=== PATIENT | female | born 1970 | race Caucasian/White ===

== ENCOUNTER 2016-08-09 15:43 | Emergency (ER) | payer BC, OTHER ==
[2016-08-09] MEDS ORDERED: KETOROLAC 30 MG/ML 1 ML VIAL IVP STA (16:03)
[2016-08-09] MEDS ORDERED: SODIUM CHLORIDE 0.9% 1,000 ML IV STA ×2 (16:03)
--- NOTE | 2016-08-09 16:05 | ED ---
General Adult HPI - General Chief complaint: Abdominal Pain Stated complaint: back & groin pain Time Seen by Provider: 08/09/16 15:56 Source: patient, RN notes reviewed Mode of arrival: ambulatory Limitations: no limitations - History of Present Illness Initial comments: Patient for 6-year-old female significant past medical history for chronic low back pain, who presents emergency room today with a chief complaint of right- sided flank pain. She does admit that it wraps around to the right side of the lower abdomen. States she went to the family doctor earlier in the week had a urinalysis performed. She states she started on steroids for her back pain. She states she's had no relief the symptoms. She does admit that it's worse with certain movements at times. She states she feels like the pain is deeper inside. Patient denies any other complaints or associated symptoms. Patient denies any recent fever, chills, shortness of breath, chest pain, nausea or vomiting, numbness or tingling, dysuria or hematuria, constipation or diarrhea, headaches or visual changes, or any other complaints. - Related Data Home Medications Medication Instructions Recorded Confirmed Diazepam [Valium] 5 mg PO BID 03/03/16 08/09/16 Cyclobenzaprine [Flexeril] 10 mg PO BID PRN 08/09/16 08/09/16 Ibuprofen [Motrin] 800 mg PO Q8H PRN 08/09/16 08/09/16 Methylphenidate HCl [Ritalin LA] 30 mg PO DAILY 08/09/16 08/09/16 Naproxen Sodium [Aleve] 440 mg PO BID PRN 08/09/16 08/09/16 Venlafaxine HCl [Effexor XR] 75 mg PO DAILY 08/09/16 08/09/16 oxyCODONE HCL [Oxyir] 5 mg PO TID 08/09/16 08/09/16 predniSONE See Taper PO DAILY 08/09/16 08/09/16 Allergies Allergy/AdvReac Type Severity Reaction Status Date / Time bupropion HCl [From Zyban] Allergy Rash/Hives Verified 08/09/16 16:23 Review of Systems ROS Statement: Those systems with pertinent positive or pertinent negative responses have been documented in the HPI. ROS Other: All systems not noted in ROS Statement are negative. Past Medical History Additional Past Medical History / Comment(s): chronic back pain History of Any Multi-Drug Resistant Organisms: None Reported Past Surgical History: Section, Hysterectomy, Orthopedic Surgery Past Psychological History: Depression Smoking Status: Current every day smoker Past Alcohol Use History: None Reported Past Drug Use History: None Reported General Exam - General Exam Comments Initial Comments: General: The patient is awake and alert, in no distress, and does not appear acutely ill. Eye: Pupils are equal, round and reactive to light, extra-ocular movements are intact. No nystagmus. There is normal conjunctiva bilaterally. No signs of icterus. Ears, nose, mouth and throat: There are moist mucous membranes and no oral lesions. Neck: The neck is supple, there is no tenderness or JVD. Cardiovascular: There is a regular rate and rhythm. No murmur, rub or gallop is appreciated. Respiratory: Lungs are clear to auscultation, respirations are non-labored, breath sounds are equal. No wheezes, stridor, rales, or rhonchi. Gastrointestinal: Soft, non-distended, non-tender abdomen without masses or organomegaly noted. There is no rebound or guarding present. No CVA tenderness. Bowel sounds are unremarkable. Musculoskeletal: Normal ROM, no tenderness. Strength 5/5. Sensation intact. Pulses equal bilaterally 2+. Neurological: A&O x 3. CN II-XII intact, There are no obvious motor or sensory deficits. Coordination appears grossly intact. Speech is normal. Skin: Skin is warm and dry and no rashes or lesions are noted. Psychiatric: Cooperative, appropriate mood & affect, normal judgment. Limitations: no limitations Course Vital Signs 08/09/16 15:48 Temperature 98.5 F Pulse Rate 118 H Respiratory 20 Rate Blood Pressure 119/84 O2 Sat by Pulse 99 Oximetry Medical Decision Making - Medical Decision Making Patient's CAT scan reviewed shows no acute ever maladies. Does show a stone of the left kidney. Results were discussed with patient. Remaining labs are unremarkable. Was discussed about possible past kidney stone that she did have blood in her urine earlier in the week. Was discussed about possible skeletal pain coming from her back. Advised follow-up the family doctor for further evaluation. Patient states understanding and is in agreement. - Lab Data Result diagrams: 08/09/16 16:17 08/09/16 16:17 Lab Results 08/09/16 08/09/16 08/09/16 Range/Units 16:17 16:17 16:17 WBC 9.0 (3.8-10.6) k/uL RBC 4.76 (3.80-5.40) m/uL Hgb 13.8 (11.4-16.0) gm/dL Hct 42.5 (34.0-46.0) % MCV 89.3 (80.0-100.0) fL MCH 29.0 (25.0-35.0) pg MCHC 32.5 (31.0-37.0) g/dL RDW 13.2 (11.5-15.5) % Plt Count 208 (150-450) k/uL Neutrophils % 81 % Lymphocytes % 15 % Monocytes % 2 % Eosinophils % 0 % Basophils % 0 % Neutrophils # 7.3 (1.3-7.7) k/uL Lymphocytes # 1.4 (1.0-4.8) k/uL Monocytes # 0.2 (0-1.0) k/uL Eosinophils # 0.0 (0-0.7) k/uL Basophils # 0.0 (0-0.2) k/uL Sodium 144 (137-145) mmol/L Potassium 3.7 (3.5-5.1) mmol/L Chloride 106 (98-107) mmol/L Carbon Dioxide 25 (22-30) mmol/L Anion Gap 13 mmol/L BUN 17 (7-17) mg/dL Creatinine 0.69 (0.52-1.04) mg/dL Est GFR (MDRD) Af Amer >60 (>60 ml/min/1.73 sqM) Est GFR (MDRD) Non-Af >60 (>60 ml/min/1.73 sqM) Glucose 133 H (74-99) mg/dL Calcium 10.0 (8.4-10.2) mg/dL Total Bilirubin 0.4 (0.2-1.3) mg/dL AST 22 (14-36) U/L ALT 39 (9-52) U/L Alkaline Phosphatase 75 (38-126) U/L Total Protein 8.1 (6.3-8.2) g/dL Albumin 4.9 (3.5-5.0) g/dL Amylase 59 (30-110) U/L Lipase 38 (23-300) U/L Urine Color Light Yellow Urine Appearance Clear (Clear) Urine pH 6.5 (5.0-8.0) Ur Specific [place] 1.004 (1.001-1.035) Urine Protein Negative (Negative) Urine Glucose (UA) Negative (Negative) Urine Ketones Negative (Negative) Urine Blood Negative (Negative) Urine Nitrate Negative (Negative) Urine Bilirubin Negative (Negative) Urine Urobilinogen <2.0 (<2.0) mg/dL Ur Leukocyte Esterase Negative (Negative) Disposition Clinical Impression: Back pain Disposition: HOME SELF-CARE Condition: Good Instructions: Acute Low Back Pain (ED) Additional Instructions: Please follow-up the family doctor over the next 2 days as discussed. Please return to emergency room if symptoms increase or worsen or for any other concerns. Time of Disposition: 18:04
[2016-08-09 16:29] LABS: Appearance,Urine Clear (Clear); Basophils % (A) 0 %; Bilirubin,Urine Negative (Negative); CH 30.3; Eosinophils % (A) 0 %; Glucose,Urine (UA) Negative (Negative); HCT 42.5 % (34.0-46.0); HDW 2.48; HGB 13.8 gm/dL (11.4-16.0); Ketones,Urine Negative (Negative); Leukocyte Esterase,Urine Negative (Negative); Luc # (Auto) 0.07; Luc % (Auto) 1; Lymphocytes # (A) 1.4 k/uL (1.0-4.8); Lymphocytes % (A) 15 %; MCHC 32.5 g/dL (31.0-37.0); MCV 89.3 fL (80.0-100.0); Mean Platelet Volume 8.2; Monocytes # (A) 0.2 k/uL (0-1.0); Monocytes % (A) 2 %; Neutrophils # (A) 7.3 k/uL (1.3-7.7); Neutrophils % (A) 81 %; Nitrite,Urine Negative (Negative); PH, Urine 6.5 (5.0-8.0); Protein,Urine Negative (Negative); RBC 4.76 m/uL (3.80-5.40); RDW 13.2 % (11.5-15.5); Specific Gravity,Urine 1.004 (1.001-1.035); UA Billing (MACRO vs. MICRO) CHEM; Urobilinogen,Urine <2.0 mg/dL (<2.0); WBC (Perox) 9.15
[2016-08-09 16:40] LABS: ALT 39 U/L (9-52); AST 22 U/L (14-36); Alkaline Phosphatase 75 U/L (38-126); Amylase 59 U/L (30-110); Anion Gap 13 mmol/L; Blood Urea Nitrogen 17 mg/dL (7-17); Carbon Dioxide 25 mmol/L (22-30); Chloride 106 mmol/L (98-107); Glucose 133 mg/dL (74-99); Non-African American GFR(MDRD) >60 (>60 ml/min/1.73 sqM); Potassium 3.7 mmol/L (3.5-5.1); Sodium 144 mmol/L (137-145); Total Bilirubin 0.4 mg/dL (0.2-1.3); Total Protein 8.1 g/dL (6.3-8.2)
--- NOTE | 2016-08-09 17:23 | XR ---
EXAMINATION TYPE: XR KUB DATE OF EXAM: 08/09/2016 4:28 PM CLINICAL HISTORY: Right-sided abdominal pain for 2 days. TECHNIQUE: 2 upright KUB images of the abdomen are obtained. COMPARISON: Abdominal x-ray series March 10, 2016. CT abdomen and pelvis March 03, 2016 FINDINGS: Scattered gas is seen in non-distended small bowel loops. Gas and fecal material is seen in non-distended colon. There is no visceromegaly, pneumoperitoneum, or abnormal calcification appr eciated. There are scattered pelvic phleboliths. Lung bases are clear. Osseous structures are intact. . IMPRESSION: Overall nonobstructive bowel gas pattern.
--- NOTE | 2016-08-09 17:46 | CT ---
EXAMINATION TYPE: CT abdomen pelvis wo con DATE OF EXAM: 08/09/2016 5:37 PM HISTORY: Patient complains of right flank pain. CT DLP: 214.8 mGycm. Automated Exposure Control for Dose Reduction was Utilized. TECHNIQUE: CT scan of the abdomen and pelvis is performed without oral or IV contrast. COMPARISON: NONE FINDINGS: Within the limitations of a non-contrast study, the following observations are made. LUNG BASES: No significant abnormality is appreciated. LIVER/GB: No significant abnormality is appreciated. PANCREAS: No significant abnormality is seen. SPLEEN: No significant abnormality is seen. ADRENALS: No significant abnormality is seen. KIDNEYS: There are 1-3 small calculi scattered throughout the left kidney, all measuring under 2 mm i n size. No right-sided renal calculi are evident. No hydronephrosis or obstructing renal calculi are clearly seen bilaterally. There are scattered pelvic phleboliths redemonstrated. No intraluminal calc ulus in the bladder is seen. BOWEL: Evaluation of bowel is suboptimal due to lack of enteric contrast. No suspicious small or larg e bowel dilatation is present. GENITAL ORGANS: Uterus is retroverted in shape but normal in size. LYMPH NODES: No greater than 1cm abdominal or pelvic lymph nodes are appreciated. OSSEOUS STRUCTURES: No significant abnormality is seen. OTHER: No significant additional abnormality is seen. IMPRESSION: Tiny nonobstructing left-sided renal calculi. No renal stones or hydronephrosis is clearl y seen bilaterally. No significant acute finding is clearly seen to account for patient's symptoms.
[2016-08-09 18:17] VITALS: BP 123/66; PULSE 83; RESP 18; TEMP 98.6
== END 2016-08-09 18:17 | disposition home or self-care (01) ==
LOC: EC 15:43
DX: M54.5 Low back pain (principal); G89.29 Other chronic pain; N20.0 Calculus of kidney; R10.31 Right lower quadrant pain; F32.9 Major depressive disorder, single episode, unspecified; F17.200 Nicotine dependence, unspecified, uncomplicated; Z79.1 Long term (current) use of non-steroidal anti-inflammatories (NSAID); Z79.891 Long term (current) use of opiate analgesic; Z79.52 Long term (current) use of systemic steroids; Z79.899 Other long term (current) drug therapy; Z88.8 Allergy status to other drugs, medicaments and biological substances; Z90.710 Acquired absence of both cervix and uterus
CPT/HCPCS: 99284 ×2; 96374 ×2; 96361 ×3; 36415; 80053; 82150; 83690; 85025; 81003; 74000; 74176; J1885

== ENCOUNTER 2017-06-23 01:18 | Emergency (ER) | payer BC ==
[2017-06-23] MEDS ORDERED: HYDROcodone/APAP 5-325MG 1 EACH TAB PO STA (01:52)
--- NOTE | 2017-06-23 02:19 | XR ---
EXAMINATION TYPE: XR Hip LT and AP Pelvis DATE OF EXAM: 06/23/2017 COMPARISON: NONE HISTORY: Hip pain after a fall TECHNIQUE: A single AP view of the pelvis is obtained. Two views of the left hip are obtained. FINDINGS: Pelvic ring is intact. Proximal femurs and hip joints are intact. There is no sign of hip dysplasia. Left hip joint appears anatomic. Sacroiliac joints appear normal. CONCLUSION: Normal pelvis and left hip exam.
--- NOTE | 2017-06-23 02:20 | XR ---
EXAMINATION TYPE: XR lumbosacral spine min 4V DATE OF EXAM: 06/23/2017 COMPARISON: NONE HISTORY: Back pain TECHNIQUE: 5 views FINDINGS: I see no fracture nor dislocation. The spaces are fairly normal. Vertebra have normal align ment. Posterior elements are intact. Sacroiliac joints appear normal. IMPRESSION: Negative lumbar spine exam.
--- NOTE | 2017-06-23 02:37 | ED ---
Fall HPI - General Chief Complaint: Fall Stated Complaint: Fall-Back Pain Time Seen by Provider: 06/23/17 01:32 Source: patient Mode of arrival: ambulatory - History of Present Illness Initial Comments: 46-year-old female patient presents to the emergency department today for evaluation of left lower back pain and left hip pain after experiencing a fall at home. Patient states that she was standing on a shelf with her friend holding one of her feet trying to fix something on the ceiling when her friend fell down. Patient states that she also fell landing face down on the floor. Injury occurred at 0030 this morning. She denies hitting her head or losing consciousness. She states that since the fall she has been having left lower back pain that radiates into her hip and down the front of her thigh. She states that she has had problems with her low back in the past including degenerative disc disease, spinal stenosis, and bulging disks. He states that she does take oxycodone at home for this. She denies any numbness or tingling to her lower extremities. She denies any loss of bladder or bladder function. She denies any saddle anesthesia. She has been able to ambulate without difficulty. Patient denies any headache, neck pain, back pain, chest pain, shortness of breath, dizziness, weakness, abdominal pain, nausea, vomiting, or difficulties with bowel movements or urination. GCS is 15. She denies any use of anticoagulant medications. - Related Data Home Medications Medication Instructions Recorded Confirmed Diazepam [Valium] 5 mg PO BID 03/03/16 08/09/16 Cyclobenzaprine [Flexeril] 10 mg PO BID PRN 08/09/16 08/09/16 Ibuprofen [Motrin] 800 mg PO Q8H PRN 08/09/16 08/09/16 Methylphenidate HCl [Ritalin LA] 30 mg PO DAILY 08/09/16 08/09/16 Naproxen Sodium [Aleve] 440 mg PO BID PRN 08/09/16 08/09/16 Venlafaxine HCl [Effexor XR] 75 mg PO DAILY 08/09/16 08/09/16 oxyCODONE HCL [Oxyir] 5 mg PO TID 08/09/16 08/09/16 predniSONE See Taper PO DAILY 08/09/16 08/09/16 Allergies Allergy/AdvReac Type Severity Reaction Status Date / Time bupropion HCl [From Zyban] Allergy Rash/Hives Verified 06/23/17 01:25 Review of Systems ROS Statement: Those systems with pertinent positive or pertinent negative responses have been documented in the HPI. ROS Other: All systems not noted in ROS Statement are negative. Past Medical History Additional Past Medical History / Comment(s): chronic back pain History of Any Multi-Drug Resistant Organisms: None Reported Past Surgical History: Section, Hysterectomy, Orthopedic Surgery Past Psychological History: Depression Smoking Status: Current every day smoker Past Alcohol Use History: None Reported Past Drug Use History: None Reported General Exam Limitations: no limitations General appearance: alert, in no apparent distress, other (This is a well- developed, well-nourished adult female patient in no acute distress. Vital signs upon presentation were temperature 97.6F, pulse 121, respirations 20, blood pressure 117/70, pulse ox 99% on room air.) Head exam: Present: atraumatic, normocephalic, normal inspection Eye exam: Present: normal appearance, PERRL, EOMI. Absent: scleral icterus, conjunctival injection, periorbital swelling Neck exam: Present: normal inspection, full ROM, other (Nontender, no step-off, no deformity to firm midline palpation of the posterior cervical spine. Full range of motion without pain or limitation.). Absent: tenderness, meningismus, lymphadenopathy Respiratory exam: Present: normal lung sounds bilaterally. Absent: respiratory distress, wheezes, rales, rhonchi, stridor Cardiovascular Exam: Present: regular rate, normal rhythm, normal heart sounds. Absent: systolic murmur, diastolic murmur, rubs, gallop, clicks GI/Abdominal exam: Present: soft, normal bowel sounds. Absent: distended, tenderness, guarding, rebound, rigid Extremities exam: Present: normal inspection, full ROM, normal capillary refill , other (Patient has full range of motion of the left hip, no hip tenderness. Skin to the leg is pink, warm, and dry. Cap refill is less than 3 seconds. Pedal and posttibial pulses are 2+ and equal bilaterally.). Absent: tenderness , pedal edema, joint swelling, calf tenderness Back exam: Present: normal inspection, other (Nontender, no step-off, no deformity to firm midline palpation of the thoracic and lumbar vertebrae. Full range of motion without pain or limitation.). Absent: tenderness, vertebral tenderness Neurological exam: Present: alert, oriented X3, CN II-XII intact Psychiatric exam: Present: normal affect, normal mood Skin exam: Present: warm, dry, intact, normal color. Absent: rash Course Vital Signs 06/23/17 06/23/17 01:21 02:53 Temperature 97.6 F 97.8 F Pulse Rate 121 H 78 Respiratory 20 16 Rate Blood Pressure 117/70 111/69 O2 Sat by Pulse 99 98 Oximetry Medical Decision Making - Medical Decision Making 46 year-old female patient presented for evaluation of left lower back pain and left hip pain after experiencing a fall at home. Physical examination was unremarkable. We did do x-rays of the lower lumbar and the left hip and pelvis which were negative for any acute fracture or dislocation. Patient will be discharged home at this time to continue taking her home pain medications. She is instructed to follow-up with her primary care physician for recheck in 1-2 days. She is instructed to return here immediately for any new, worsening, or concerning symptoms. She verbalizes understanding and agrees with this plan. - Radiology Data Radiology results: report reviewed, image reviewed 5 views of the lumbosacral spine showed no fracture nor dislocation. This spaces are fairly normal. Vertebra have normal alignment. Posterior elements are intact. Sacroiliac joints appear normal. Impression by Dr. Sandoval shows negative lumbar spine exam. A single AP view of the pelvis and 2 views of the left hip are obtained. Findings show the pelvic ring is intact. Proximal femur and hip joints are intact. There is no sign of hip dysplasia. Left hip joint appears anatomic. Sacroiliac joints appear normal. Conclusion by Dr. Sandoval shows normal pelvis and left hip exam. Disposition Clinical Impression: Acute low back pain Disposition: HOME SELF-CARE Condition: Good Instructions: Contusion in Adults (ED) Additional Instructions: Take ibuprofen and Tylenol for pain control. Follow-up with your primary care physician for recheck in 1-2 days. Return here immediately for any new, worsening, or concerning symptoms. Referrals: Nilesh Mccabe DO [Primary Care Provider] - 1-2 days Time of Disposition: 02:37
[2017-06-23 02:53] VITALS: BP 111/69; PULSE 78; RESP 16; TEMP 97.8
== END 2017-06-23 02:54 | disposition home or self-care (01) ==
LOC: EC 01:18
DX: M54.5 Low back pain (principal); M25.552 Pain in left hip; F32.9 Major depressive disorder, single episode, unspecified; F17.200 Nicotine dependence, unspecified, uncomplicated; Z88.8 Allergy status to other drugs, medicaments and biological substances; Z79.52 Long term (current) use of systemic steroids; Z79.899 Other long term (current) drug therapy; W17.89XA Other fall from one level to another, initial encounter; Y93.89 Activity, other specified; Y92.009 Unspecified place in unspecified non-institutional (private) residence as the place of occurrence of the external cause
CPT/HCPCS: 72110; 73502; 99283

== ENCOUNTER → 2019-03-17 | Outpatient (CLI) | payer BC ==
--- NOTE | 2019-03-18 08:51 | XR ---
EXAMINATION TYPE: XR ribs LT DATE OF EXAM: 03/17/2019 COMPARISON: NONE HISTORY: Left-sided rib pain after injury. TECHNIQUE: 4 views left ribs were obtained. FINDINGS: Visualized lungs are clear. Cardiac silhouette is normal in size. No pneumothorax. Anterior medial cortex left 6 rib irregularity may represent nondisplaced rib fracture versus vascula r groove. Mild degenerative changes throughout the mid and lower thoracic spine. IMPRESSION: Medial cortex left 6 rib irregularity may represent nondisplaced rib fracture versus vascular groove. Correlate with point tenderness.
--- NOTE | 2019-03-18 08:52 | XR ---
EXAMINATION TYPE: XR chest 2V DATE OF EXAM: 03/17/2019 COMPARISON: NONE HISTORY: Left-sided rib pain after injury. TECHNIQUE: Frontal and lateral views of the chest are obtained. FINDINGS: There is no focal air space opacity, pleural effusion, or pneumothorax seen. The cardiac silhouette size is within normal limits. Mild degenerative changes are seen in the thoracic spine. IMPRESSION: No acute cardiopulmonary process.
== END | disposition home or self-care (01) ==
LOC: RADXRMAIN 16:58
PROVIDERS: ATTEND Internal Medicine
DX: S29.9XXA Unspecified injury of thorax, initial encounter (principal)
CPT/HCPCS: 71046

== ENCOUNTER → 2019-04-15 | Outpatient (CLI) | payer BC ==
--- NOTE | 2019-04-15 09:30 | BD ---
EXAMINATION TYPE: Axial Bone Density DATE OF EXAM: 04/15/2019 COMPARISON: NONE CLINICAL HISTORY: Z 13.820 Height: 63 Weight: 127.8 FRAX RISK QUESTIONS: Alcohol (3 or more units per day): no Family History (Parent hip fracture): no Glucocorticoids (More than 3mos): no (Ex: prednisone, prednisolone, methylprednisolone, dexamethasone, and hydrocortisone). History of Fracture in Adulthood: yes Secondary Osteoporosis: 1. Type 1 Diabetes: no 2. Hyperthyroidism: no 3. Menopause before 45: yes 4. Malnutrition: no 5. Chronic liver disease: no Rheumatoid Arthritis: no Current Tobacco Use: yes RISK FACTORS HISTORY OF: Family History of Osteoporosis: no Active: yes Diet low in dairy products/other sources of calcium: no Postmenopausal woman: hysterectomy 2010 MEDICATIONS: ritalin, xanax, effexor Additional History: EXAM MEASUREMENTS: Bone mineral densitometry was performed using the [employer] System. Bone mineral density as measured about the Lumbar spine is: ----- L1-L4(G/cm2): 0.999 T Score Values are as follows: ----- L2: -1.4 ----- L3: -1.2 ----- L4: -1.6 ----- L1-L4: -1.5 Bone mineral density : baseline Bone mineral density about the R hip (g/cm2): 0.836 Bone mineral density about the L hip (g/cm2): 0.812 T Score values are as follows: -----R Neck: -1.5 -----L Neck: -1.6 -----R Total: -1.1 -----L Total: -1.2 Bone mineral density : baseline IMPRESSION: Osteopenia (T Score between -2.5 and -1). There is slightly increased risk of fracture and the patient may be considered for treatment. Re-Screen 2-5 years. NOTE: T-SCORE=SD OF THE YOUNG ADULT MEAN.
== END | disposition home or self-care (01) ==
LOC: RADBDWWP 07:26
PROVIDERS: ATTEND Family Medicine
DX: M85.89 Other specified disorders of bone density and structure, multiple sites (principal)
CPT/HCPCS: 77080

== ENCOUNTER 2023-09-17 13:19 | Emergency (ER) | payer BC, OTHER ==
--- NOTE | 2023-09-17 13:28 | ED ---
General Adult HPI <Corry Baker - Last Filed: 09/17/23 13:26> <Michelle Bell - Last Filed: 09/21/23 00:18> - General Stated complaint: pain in rib Time Seen by Provider: 09/17/23 13:27 - History of Present Illness Initial comments: The patient is a 53-year-old female presents emergency room with complaints of left lower rib pain. Patient states it started a few days ago after she elbowed her ribs accidentally. (Corry Baker) 53-year-old female presents emergency department reporting to left chest wall pain. States that it started a couple of days ago after she accidentally elbowed herself in the ribs. States that she has pretty significant tenderness to palpation of the left lower ribs. Pain is worse with deep inspiration and movement. She has been taking regular Tylenol and Motrin at home without any improvement in her pain. She does have history of previous rib injury with rib fracture and therefore patient is requesting evaluation for rib fracture. She denies any fevers. No cough. No other alleviating, precipitating or modifying factors (Michelle Bell) - Related Data Home Medications Medication Instructions Recorded Confirmed Methylphenidate HCl [Ritalin LA] 30 mg PO DAILY 08/09/16 07/14/17 Venlafaxine HCl [Effexor XR] 75 mg PO DAILY 08/09/16 07/14/17 oxyCODONE HCL [Oxyir] 5 mg PO TID 08/09/16 07/14/17 ALPRAZolam [Xanax] 0.5 mg PO DAILY PRN 07/14/17 07/14/17 Previous Rx's Medication Instructions Recorded Ibuprofen [Motrin] 600 mg PO Q8HR PRN #30 tab 07/14/17 Acetaminophen-Codeine 300-30mg 1 tab PO Q6H PRN 3 Days #12 tablet 09/17/23 [Tylenol w/codeine #3] Lidocaine 5% Patch [Lidoderm] 1 patch TOPICAL DAILY #25 patch 09/17/23 Acetaminophen-Codeine 300-30mg 1 tab PO Q6HR PRN #12 tablet 09/20/23 [Tylenol #3] Allergies Allergy/AdvReac Type Severity Reaction Status Date / Time [facility] Allergy Rash/Hives Verified 09/17/23 13:39 Review of Systems ROS Other: All systems not noted in ROS Statement are negative. <Corry Baker - Last Filed: 09/17/23 13:26> ROS Other: All systems not noted in ROS Statement are negative. <Michelle Bell Manny - Last Filed: 09/21/23 00:18> ROS Statement: Those systems with pertinent positive or pertinent negative responses have been documented in the HPI. Past Medical History Additional Past Medical History / Comment(s): chronic back pain History of Any Multi-Drug Resistant Organisms: None Reported Past Surgical History: Section, Hysterectomy, Orthopedic Surgery Past Psychological History: Depression Past Alcohol Use History: None Reported Past Drug Use History: None Reported <Corry Baker - Last Filed: 09/17/23 13:26> General Exam <Corry Baker - Last Filed: 09/17/23 13:26> General appearance: alert, in no apparent distress Head exam: Present: atraumatic, normocephalic, normal inspection Eye exam: Present: normal appearance, PERRL, EOMI. Absent: scleral icterus, conjunctival injection, periorbital swelling ENT exam: Present: normal exam, mucous membranes moist Neck exam: Present: normal inspection. Absent: tenderness, meningismus, lymphadenopathy Respiratory exam: Present: normal lung sounds bilaterally, chest wall tenderness (Tenderness to palpation of the left lower chest wall near ribs 11 and 12). Absent: respiratory distress, wheezes, rales, rhonchi, stridor Cardiovascular Exam: Present: regular rate, normal rhythm, normal heart sounds. Absent: systolic murmur, diastolic murmur, rubs, gallop, clicks GI/Abdominal exam: Present: soft, normal bowel sounds. Absent: distended, tenderness, guarding, rebound, rigid Extremities exam: Present: normal inspection, full ROM, normal capillary refill. Absent: tenderness, pedal edema, joint swelling, calf tenderness Back exam: Present: normal inspection Neurological exam: Present: alert, oriented X3, CN II-XII intact Psychiatric exam: Present: normal affect, normal mood Skin exam: Present: warm, dry, intact, normal color. Absent: rash <BonijulietteMichelle Manny - Last Filed: 09/21/23 00:18> - General Exam Comments Initial Comments: Visual Physical Exam Vital signs reviewed General: Well-appearing, nontoxic, no acute distress. Head: Normocephalic, atraumatic Eyes: PERRLA, EOMI ENT: Airway patent Chest: Nonlabored breathing Skin: No visual rash, normal skin tone Neuro: Alert and oriented 3 Musculoskeletal: No gross abnormalities (Corry Baker) Course Vital Signs 09/17/23 09/17/23 13:36 15:45 Temperature 98 F Pulse Rate 98 71 Respiratory 18 16 Rate Blood Pressure 143/90 156/84 O2 Sat by Pulse 99 99 Oximetry Medical Decision Making <Corry Baker - Last Filed: 09/17/23 13:26> <Michelle Bell - Last Filed: 09/21/23 00:18> - Medical Decision Making Quick note portion completed by myself, electronically signed NOA Escobar. (Corry Baker) Was pt. sent in by a medical professional or institution (, PA, BUILDING CERTIFIER, urgent care, hospital, or intermediate...) When possible be specific @ -No Did you speak to anyone other than the patient for history (EMS, parent, family, police, friend...)? What history was obtained from this source @ -No Did you review nursing and triage notes (agree or disagree)? Why? @ -I reviewed and agree with nursing and triage notes Were old charts reviewed (outside hosp., previous admission, EMS record, old EKG, old radiological studies, urgent care reports/EKG's, intermediate records)? Report findings @ -No old charts were reviewed Differential Diagnosis (chest pain, altered mental status, abdominal pain women, abdominal pain men, vaginal bleeding, weakness, fever, dyspnea, syncope, headac he, dizziness, GI bleed, back pain, seizure, CVA, palpatations, mental health, musculoskeletal)? @ -Differential Chest Pain: Stable Angina, Unstable Angina, STEMI, NSTEMI Aortic Dissection, Pneumothorax, Musculoskeletal, Esophageal Spasm GERD, Cholecystitis, Pancreatitis, Zoster, this is not meant to be an all-inclusive list. EKG interpreted by me (3pts min.). @ -As above X-rays interpreted by me (1pt min.). @ -Yes and demonstrates no acute fractures CT interpreted by me (1pt min.). @ -None done U/S interpreted by me (1pt. min.). @ -None done What testing was considered but not performed or refused? (CT, X-rays, U/S, labs)? Why? @ -None What meds were considered but not given or refused? Why? @ -None Did you discuss the management of the patient with other professionals (professionals i.e. , PA, BUILDING CERTIFIER, lab, RT, psych nurse, web content & social media manager, air traffic control specialist center, teacher, division officer weapons department, home health care case manager)? Give summary @ -No Was smoking cessation discussed for >3mins.? @ -No Was critical care preformed (if so, how long)? @ -No Were there social determinants of health that impacted care today? How? (Homelessness, low income, unemployed, alcoholism, drug addiction, transportation, low edu. Level, literacy, decrease access to med. care, prison, rehab)? @ -No Was there de-escalation of care discussed even if they declined (Discuss DNR or withdrawal of care, Hospice)? DNR status @ -No What co-morbidities impacted this encounter? (DM, HTN, Smoking, COPD, CAD, Cancer, CVA, ARF, Chemo, Hep., AIDS, mental health diagnosis, sleep apnea, morbid obesity)? @ -None Was patient admitted / discharged? Hospital course, mention meds given and route, prescriptions, significant lab abnormalities, going to OR and other pertinent info. @ -Discharged. Upon arrival patient was placed in the hallway 18. Thorough history and physical exam was performed. Patient is sent for chest x-ray which demonstrates no acute process. I did discuss the diagnosis, differential and treatment options. Patient states that the pain is worse at night when she attempts to sleep. She will be given a prescription for few Tylenol 3's. Instructed to wear Lidoderm patches to the site. 1 is applied to the patient at this time. Prescriptions will be sent to the pharmacy. Instructed to not perform any heavy lifting or bending. She has to follow-up with her doctor in 2 to 4 days and return for any new or worsening symptoms. Patient agreeable to plan she was discharged in stable condition Undiagnosed new problem with uncertain prognosis? @ -No Drug Therapy requiring intensive monitoring for toxicity (Heparin, Nitro, Insulin, Cardizem)? @ -No Were any procedures done? @ -No Diagnosis/symptom? @ -Acute left-sided chest wall pain Acute, or Chronic, or Acute on Chronic? @ -Acute Uncomplicated (without systemic symptoms) or Complicated (systemic symptoms)? @ -Complicated Side effects of treatment? @ -No Exacerbation, Progression, or Severe Exacerbation? @ -No Poses a threat to life or bodily function? How? (Chest pain, [place], [place], pneumonia, PE, COPD, DKA, ARF, appy, cholecystitis, CVA, Diverticulitis, Homicidal, Suicidal, threat to staff... and all critical care pts) @ -No (Michelle Bell) Disposition <Corry Baker - Last Filed: 09/17/23 13:26> Is patient prescribed a controlled substance at d/c from ED?: Yes When asked, does pt state using other controlled substances?: No If prescribed controlled substance>3 days was MAPS reviewed?: Prescribed <3 Days If opioid is for acute pain is fill amount 7 days or less?: Yes Time of Disposition: 15:26 <Michelle Bell - Last Filed: 09/21/23 00:18> Clinical Impression: Rib pain on left side Disposition: HOME SELF-CARE Condition: Stable Instructions (If sedation given, give patient instructions): Rib Contusion (ED) Additional Instructions: Take the pain medications as directed. Use the Lidoderm patches daily. If the prescription for the patches is expensive, buy the [id number] alternative which would be the Aspercreme patches. Follow-up with your doctor and return for any new or worsening symptoms Prescriptions: Lidocaine 5% Patch [Lidoderm] 1 patch TOPICAL DAILY #25 patch Acetaminophen-Codeine 300-30mg [Tylenol w/codeine #3] 1 tab PO Q6H PRN 3 Days #12 tablet PRN Reason: Pain Acetaminophen-Codeine 300-30mg [Tylenol #3] 1 tab PO Q6HR PRN #12 tablet PRN Reason: pain Referrals: Vikas Carias MD [Primary Care Provider] - 1-2 days
[2023-09-17 14:00] VITALS: TEMP 98
--- NOTE | 2023-09-17 14:05 | XR ---
PA chest with left rib series. DATE: 09/17/2023. COMPARISON: None available. CLINICAL HISTORY: Left anterior rib pain. IMPRESSION: The lungs are clear. The cardiac silhouette and pulmonary vessels are within normal limits. No displaced rib fractures are seen.
[2023-09-17] MEDS: ACET/COD 300 MG/30 MG STARTER PACK 6 TAB BTL PO STA (15:34)
[2023-09-17] MEDS: LIDOCAINE 4% PATCH TOPICAL ONE (15:35)
[2023-09-17 16:04] VITALS: BP 156/84; PULSE 71; RESP 16
== END 2023-09-17 15:46 | disposition home or self-care (01) ==
LOC: EC 13:19
DX: R07.81 Pleurodynia (principal); F32.A Depression, unspecified; Z88.8 Allergy status to other drugs, medicaments and biological substances; Z79.899 Other long term (current) drug therapy
CPT/HCPCS: 99283